=== PATIENT | female | born 1985 | race Caucasian/White ===

== ENCOUNTER 2017-02-23 14:26 | Inpatient (IN) | payer OTHER ==
[2017-02-23] VITALS (24 sets, daily range): BP systolic 90–119; BP diastolic 52–77
[~2017-02-23] VITALS: Ht 154.9 cm; Wt 75.5 kg
[~2017-02-23 14:26] MED LIST: KEFLEX500 MG PO
[2017-02-23 16:33] LABS: EOSINOPHIL (%) 0.4 % (0-5); HEMATOCRIT 32.3 % (36.0-46.0); IMMATURE GRANULOCYTE (%) 0.8 % (0.0-0.7); IMMATURE GRANULOCYTE COUNT 0.1 K/uL; INSTRUMENT ABS NEUTROPHIL CT 8.4 K/uL; LYMPHOCYTE COUNT 2.1 K/uL (1.0-2.8); MCH 30.4 PG (29.0-34.0); MCHC 34.1 G/DL (30.0-36.0); MCV 89.2 FL (83-99); MEAN PLAT.VOLUME 10.9 uM^3 (9.5-12.4); MONOCYTE COUNT 0.8 K/uL (0-0.8); NEUTROPHIL (%) 73.5 % (45-76); NEUTROPHIL COUNT 8.4 K/uL (1.8-6.4); PLATELET COUNT 275 K/uL (156-360); RBC DIS.WIDTH-CV 13.3 % (11.8-14.6); RBC DIS.WIDTH-SD 43.3 % (39-53); RED BLOOD COUNT 3.62 M/uL (3.80-5.20); WHITE BLOOD COUNT 11.4 K/uL (4.1-10.2)
[2017-02-24] VITALS (8 sets, daily range): BP systolic 101–135; BP diastolic 54–72
[2017-02-24 08:43] LABS: EOSINOPHIL (%) 0.1 % (0-5); HEMATOCRIT 30.9 % (36.0-46.0); IMMATURE GRANULOCYTE (%) 0.6 % (0.0-0.7); IMMATURE GRANULOCYTE COUNT 0.1 K/uL; INSTRUMENT ABS NEUTROPHIL CT 13.4 K/uL; LYMPHOCYTE COUNT 1.5 K/uL (1.0-2.8); MCHC 33.7 G/DL (30.0-36.0); MEAN PLAT.VOLUME 11.1 uM^3 (9.5-12.4); NEUTROPHIL (%) 83.6 % (45-76); NEUTROPHIL COUNT 13.4 K/uL (1.8-6.4); PLATELET COUNT 276 K/uL (156-360); RBC DIS.WIDTH-CV 13.2 % (11.8-14.6); RBC DIS.WIDTH-SD 42.5 % (39-53); RED BLOOD COUNT 3.47 M/uL (3.80-5.20)
[2017-02-25 08:01] VITALS: BP 117/73
== END 2017-02-25 16:40 | disposition home or self-care (01) | DRG 775 ==
LOC: LDRP-OP → 2WEST 14:27 → LDRP-OP 03-28 19:57
PROVIDERS: Advanced Practice Midwife
PROC: 00HU33Z Insertion of Infusion Device into Spinal Canal, Percutaneous Approach (ICD-10-PCS; principal; 2017-02-23)
PROC: 10907ZC Drainage of Amniotic Fluid, Therapeutic from Products of Conception, Via Natural or Artificial Opening (ICD-10-PCS; principal; 2017-02-23)
PROC: 3E0S3CZ (ICD-10-PCS; principal; 2017-02-23)
PROC: 0HQ9XZZ Repair Perineum Skin, External Approach (ICD-10-PCS; 2017-02-24)
PROC: 10E0XZZ Delivery of Products of Conception, External Approach (ICD-10-PCS; 2017-02-24)
DX: O70.0 First degree perineal laceration during delivery (principal); Z3A.39 39 weeks gestation of pregnancy; Z37.0 Single live birth; O36.63X0 Maternal care for excessive fetal growth, third trimester, not applicable or unspecified
CPT/HCPCS: 85025; 86900; 86901; C1755; G0378; J0595; J2405; J3010; J7120

== ENCOUNTER → 2017-02-27 | Outpatient (CLI) | payer OTHER | END | disposition home or self-care (01) | LOC: LAC 16:04 | DX: O92.13 Cracked nipple associated with lactation (principal); O92.29 Other disorders of breast associated with pregnancy and the puerperium; O92.79 Other disorders of lactation | CPT/HCPCS: G0463 ==